=== PATIENT | female | born 1955 | race Two or more races ===

== ENCOUNTER 2017-07-25 23:00 | Inpatient (IN) | payer SELFPAY ==
[~2017-07-25] VITALS: Ht 162.6 cm; Wt 74.8 kg
--- NOTE | 2017-07-25 23:00 | NUR ---
BIBRA 62 C/O LEFT SHOULDER PAIN S/P WITNESSED TRIP AND FALL BY SON X 30 MIN. BS WNL EN ROUTE BY RA. VSS NAD. LEFT SHOULDER PAIN 10/10 WITH MOVEMENT. A/OX4 ABLE TO MAKE NEEDS KNOWN AND FAMILY AT BEDSIDE FOR MORE INFORMATION. WILL CONTINUE TO MONITOR FOR ANY CHANGES DURING THE SHIFT.
--- NOTE | 2017-07-25 23:01 | NUR ---
ER AT BEDSIDE FOR EVAL
--- NOTE | 2017-07-25 23:29 | NUR ---
LAB AT BEDSIDE TO COLLECT LABS
[2017-07-25] MEDS ORDERED: KETOROLAC TROMETHAMINE INJ 30 MG/ML VIAL IV ONE (23:30)
[2017-07-25] MEDS ORDERED: ONDANSETRON HCL/PF 4 MG/2 ML VIAL IVP ONE (23:30)
[2017-07-25] MEDS ORDERED: ONDANSETRON HCL/PF 4 MG/2 ML VIAL ONE (23:35)
[2017-07-25] MEDS ORDERED: KETOROLAC TROMETHAMINE INJ 30 MG/ML VIAL ONE (23:35)
[2017-07-26] VITALS (9 sets, daily range): BP systolic 122–145; BP diastolic 60–86
--- NOTE | 2017-07-26 | NUR ---
PT OFF TO CT
--- NOTE | 2017-07-26 00:07 | NUR ---
PT BACK FORM CT
[2017-07-26 00:08] LABS: BASOPHILS % (AUTO) 0.6 % (0.0-2.0); EOSINOPHILS % (AUTO) 2.8 % (0.0-6.0); HEMATOCRIT 38 % (33-45); HEMOGLOBIN 12.6 g/dL (11.5-14.8); LYMPHOCYTES # (AUTO) 0.6 /CMM (0.8-4.8); LYMPHOCYTES % (AUTO) 8.4 % (20.0-44.0); MEAN CORPUSCULAR HGB CONC 33 g/dl (31.0-36.0); MEAN CORPUSCULAR VOLUME 86 fL (82-100); MONOCYTES # (AUTO) 0.7 /CMM (0.1-1.30); MONOCYTES % (AUTO) 8.8 % (2.0-12.0); NEUTROPHILS # (AUTO) 6.1 /CMM (1.8-8.9); NEUTROPHILS % (AUTO) 79.4 % (43.0-81.0); PLATELET COUNT (AUTO) 234 /CMM (150-450); RDW COEFFICIENT OF VARIATION 13.4 (11.5-15.0); RED BLOOD CELL COUNT(AUTO) 4.48 MIL/uL (4.0-5.2); WHITE BLOOD COUNT (AUTO) 7.7 K/uL (4.3-11.0)
[2017-07-26 00:25] LABS: INR 0.92 (0.87-1.13)
[2017-07-26 00:30] LABS: CARBON DIOXIDE 28 mmol/L (21-32); CHLORIDE 102 mmol/L (98-107); CREATININE 0.7 mg/dL (0.6-1.3); GLUCOSE 135 mg/dL (74-106); POTASSIUM 3.5 mmol/L (3.5-5.1); SODIUM SERUM 138 mmol/L (136-145); UREA NITROGEN, BLOOD 23 mg/dL (7-18)
[2017-07-26 00:31] LABS: TROPONIN I < 0.017 ng/mL (0.00-0.056)
[2017-07-26 00:34] LABS: ALANINE AMINOTRANSFERASE 45 U/L (12-78); ALBUMIN 3.7 g/dL (3.4-5.0); ALKALINE PHOSPHATASE 71 U/L (46-116); ASPARTATE AMINOTRANSFERASE 28 U/L (15-37); BILIRUBIN,TOTAL 0.2 mg/dL (0.2-1.0); TOTAL PROTEIN, SERUM 7.3 g/dL (6.4-8.2)
[2017-07-26] MEDS ORDERED: PROPOFOL 20 ML IV ONE (00:36)
--- NOTE | 2017-07-26 00:46 | NUR ---
ER MD WARREN AT BEDSIDE FOR CONSCIOUS SEDATION. CONSENT SIGNED. 194/111 84 100% 20 ON 10L 02 SIMPLE MASK
--- NOTE | 2017-07-26 00:47 | NUR ---
IVP 100MG DIPROVAN RFA 20G PER MD WARREN ORDER. RT AT BEDSIDE WELL TERMITE INSPECTOR TO ASSIST PROCEDURE.
--- NOTE | 2017-07-26 00:56 | NUR ---
ATTEMPTED TO PLACE SHOULDER BACK INTO PLACE. VITALS 79 174/96 100% 20. WILL CONTINUE TO MONITOR FOR ANY CHANGES. AWAITING MULTIFOCAL BUTTON GRINDER FOR CONFIRMATION
[2017-07-26] MEDS ORDERED: PROPOFOL 200 MG/20 ML VIAL IV ONE (01:00)
--- NOTE | 2017-07-26 01:18 | NUR ---
ER MD WARREN AT BEDSIDE FOR CONSCIOUS SEDATION
--- NOTE | 2017-07-26 01:19 | NUR ---
VITALS PRIOR TO SEDATION 86 20 100% 185/100
--- NOTE | 2017-07-26 01:21 | NUR ---
SHOULDER BACK IN PLACE
--- NOTE | 2017-07-26 01:23 | NUR ---
VITALS AFTER PROCEDURE 88 16 99% 171/89
[2017-07-26] MEDS ORDERED: IV NS 0.9% 1,000 ML IV PRN (01:28)
[2017-07-26] MEDS ORDERED: MAGNESIUM HYDROXIDE 30 ML UDC PO PRN (01:30)
[2017-07-26] MEDS ORDERED: HYDROCODONE/APAP 10/325MG 1 EA TABLET PO PRN (01:30)
[2017-07-26] MEDS ORDERED: HYDROCODONE/APAP 5/325MG 1 EACH TABLET PO PRN (01:30)
[2017-07-26] MEDS ORDERED: ACETAMINOPHEN 325 MG TABLET PO PRN (01:30)
[2017-07-26] MEDS ORDERED: ONDANSETRON HCL/PF 4 MG/2 ML VIAL IVP PRN (01:30)
[2017-07-26] MEDS ORDERED: ZOLPIDEM TARTRATE 5 MG TABLET PO PRN (01:30)
[2017-07-26] MEDS ORDERED: MAG HYDROX/AL HYDROX/SIMETH 30 ML UDC PO PRN (01:30)
--- NOTE | 2017-07-26 02:15 | NUR ---
tele/rn notes NEW ADMITTED PATIENT IS A 62 Y.O FEMALE, ALERT, ORIENTED X3, ABLE TO VERBALIZE NEEDS, RESPIRATIONS EVEN AND UNLABORED, WITH DX OF SYNCOPE, HAD WITNESSED FALL AT HOME, PROCEDURE DONE AND SHOULDER WAS PUT BACK IN PLACE, TELE READING AT SR 90'S, HX OF DM, HTN,HLD, DIET CARB CONTROL. IV ON RFA GAUGE 20, DISCUSSED PLAN OF CARE, REPORTED MEDICATION LIST/ RECONCILED, USES CPAP AT HOME, MD CONTACTED FOR ORDER, PREFER TO USE OWN CPAP MACHINE TO FOLLOW UP IN AM. BELONGINGS CHECK , FAMILY INVOLVE. ROOM ORIENTATION, BED IN LOCK POSITION, CALL LIGHTS WITHIN REACH.
--- NOTE | 2017-07-26 02:20 | NUR ---
patient refused to have pictures taken at this time, will follow up.
[2017-07-26] MEDS ORDERED: PERI8TAB4 PO (02:30)
[2017-07-26] MEDS ORDERED: QUET25TA PO (02:30)
[2017-07-26] MEDS ORDERED: ATOR40TA PO (02:30)
[2017-07-26] MEDS ORDERED: INSU100I4 SQ (02:30)
[2017-07-26] MEDS ORDERED: LEVO137T24 PO (02:30)
--- NOTE | 2017-07-26 03:57 | NUR ---
PT REFUSED TO USE HOSPITAL CPAP MACHINE, STATED SHE WILL HAVE A FAMILY MEMBER BRING HER OWN FROM HOME. HOSPITAL CPAP MACHINE LEFT AT BEDSIDE, PT ENCOURAGED TO CALL IF HAVING DIFFICULTY OF BREATHING OR FEELING S.O.B. DASH GRIFFIN NOTIFIED AND AWARE. Addendum: 07/26/17 at 0359 by SANA SHARMA RT Amended: Links added.
[2017-07-26] MEDS ORDERED: DEXTROSE 50%-WATER 50 ML DISP.SYRIN IV PRN (04:30)
--- NOTE | 2017-07-26 06:28 | NUR ---
309-2 tele/rn notes PATIENT IN BED, AWAKE, ALERT X3, ABLE TO VERBALIZE NEEDS AT ALL TIMES, REPSIRATIONS EVEN AND UNLABORED, ABLE TO AMBULATE WITH SUPERVISION, MD MADE AWARE REGARDING HOME MEDICATIONS AND ORDERED FOR AM TO BE RECONCILED WITH ORDER TO DO ACCUCHECK AT MILD COVERAGE, CALL LIGHTS WITHIN REACH, BED IN LOCK POSITION WILL MONITOR AND ENDORSE TO AM RN FOR DUSTIN.
[2017-07-26] MEDS: BLOOD SUGAR DIAGNOSTIC 1 EACH STRIP IN SCH ×4 (06:39→21:04)
--- NOTE | 2017-07-26 07:35 | NUR ---
REPAIR TABLE OPERATOR NOTES Patient received in bed, awake and verbally responsive. A&O x4 with son at bedside. Left arm sling on w/ complaints of aching pain 3-4/10 on left arm and left groin using pain scale appropriately. Will inform provider regarding left groin for eval. No SOB or any type of distress noted. Safety measures in place. Bed in lowest position, HOB elevated with call light within reach. Will continue to monitor and assess patient
[2017-07-26] MEDS: PANTOPRAZOLE 40 MG TABLET.DR PO SCH (08:00)
[2017-07-26 08:31] LABS: MAGNESIUM 1.7 mg/dL (1.8-2.4); PHOSPHORUS 3.6 mg/dL (2.5-4.9)
[2017-07-26] MEDS ORDERED: CALC-7 PO (08:41)
[2017-07-26] MEDS ORDERED: ASPI-1169 PO (08:41)
[2017-07-26] MEDS ORDERED: MULT-1200 PO (08:41)
[2017-07-26] MEDS ORDERED: SITA1TAB6 PO (08:41)
[2017-07-26] MEDS ORDERED: MAGNESIUM OXIDE 400 MG TABLET PO ONE (10:00)
[2017-07-26] MEDS ORDERED: ONDANSETRON 4 MG TAB.RAPDIS SL PRN (10:00)
[2017-07-26] MEDS: POTASSIUM CHLORIDE 20 MEQ TAB.PRT.SR PO SCH ×3 (10:44→13:04)
[2017-07-26] MEDS: Magnesium 1GM/D5W 100ML PREMIX 100 ML IV SCH ×2 (10:45→11:52)
[2017-07-26 11:08] LABS: CREATINE KINASE MB 6.8 ng/mL (0-3.6)
--- NOTE | 2017-07-26 12:20 | NUR ---
NEUROPATHOLOGIST NOTES - NON-ADMIN MEDS Patient aware of BS 197. Refused Insulin. Explained risks and benefits. Offered x3 but patient continue to refuse.
[2017-07-26] MEDS: IV NS 0.9% 1,000 ML IV PRN ×2 (13:47→18:41)
[2017-07-26] MEDS: INSULIN REGULAR, HUMAN 100 UNIT/ML 3 ML VIAL SQ PRN ×2 (17:22→21:04)
--- NOTE | 2017-07-26 17:54 | NUR ---
PLYWOOD PATCHER CLOSING NOTES Patient remains A&O x4. Ambulatory with minimal assist. CT Pelvis shows unremarkable with no acute abnormality. TELE monitor shows SR, HR 104. Patient stable during shift. Patient non-compliant with hospital medication protocol. Provider aware. Complaints of discomfort but not requesting for any reliever. All anticipated needs provided and met. Safety measures in place. Son at bedside. Bed in lowest position with call light within reach. Will endorse to oncoming shift nurse
[2017-07-26] MEDS: QUETIAPINE FUMARATE 25 MG TABLET PO SCH (18:13)
--- NOTE | 2017-07-26 19:00 | NUR ---
SEISMOMETER OPERATOR OPENING NOTE RECEIVE PATIENT IS RESTING IN BED, A/O X4, NO FACIAL GRIMACING NOTED FOR PAIN. NO SOB OR DISTRESS NOTED, CALL LIGHT WITHIN REACH. SAFETY MEASURES IMPLEMENTED. WILL CONTINUE TO MONITOR THROUGHOUT SHIFT.
--- NOTE | 2017-07-26 21:26 | NUR ---
BOILERMAKER HELPER NOTES - NON-ADMIN MEDS Patient aware of recent BS. pt Refused Insulin. despite explaining risks and benefits. Offered x3 but patient continue to refuse hospitalist applications system analyst made aware
[2017-07-27] VITALS: BP 148/73
--- NOTE | 2017-07-27 00:23 | NUR ---
RT NOTE PATIENT REFUSED TO USE CPAP. CPAP MACHINE LEFT AT PATIENT BEDSIDE, PT ENCOURAGED TO CALL IF HAVING DIFFICULTY OF BREATHING OR FEELING S.O.B. SPO2 97% ON ROOM AIR. DASH HORNE NOTIFIED AND AWARE.
[2017-07-27 00:53] VITALS: BP 148/73
[2017-07-27 04:00] VITALS: BP 136/76
[2017-07-27 04:57] VITALS: BP 136/76
[2017-07-27] MEDS: BLOOD SUGAR DIAGNOSTIC 1 EACH STRIP IN SCH ×3 (05:37→17:30)
[2017-07-27] MEDS: INSULIN REGULAR, HUMAN 100 UNIT/ML 3 ML VIAL SQ PRN (05:38)
--- NOTE | 2017-07-27 06:03 | NUR ---
OUTPATIENT CASE MANAGER CLOSING NOTES PT COMFORTABLY ASLEEP AND EASILY AWAKEN, TOLERATING ROOM AIR 99% IN STABLE CONDITION. RESPIRATION EVEN AND UNLABORED. KEPT CLEAN AND DRY AND COMFORTABLE, ALL NURSING CARE RENDERED. NEEDS ATTENDED AND ANTICIPATED, GOOD SKIN CARE PROVIDED. FREQUENT VISUAL CHECK DONE FOR SAFETY EVERY 2 HOURS. ON LOW BED AT ALL TIMES TO ENSURE SAFETY. SAFE HAZARD FREE ENVIRONMENT PROVIDED. NO COMPLAINS OF PAIN. CALL LIGHT WITHIN EASY TO REACH. WILL ENDORSE NEXT SHIFT CONTINUITY OF CARE.
[2017-07-27 06:37] LABS: BASOPHILS % (AUTO) 0.2 % (0.0-2.0); EOSINOPHILS % (AUTO) 2.1 % (0.0-6.0); HEMATOCRIT 36 % (33-45); HEMOGLOBIN 11.8 g/dL (11.5-14.8); LYMPHOCYTES # (AUTO) 0.4 /CMM (0.8-4.8); LYMPHOCYTES % (AUTO) 5.2 % (20.0-44.0); MEAN CORPUSCULAR HGB CONC 33 g/dl (31.0-36.0); MEAN CORPUSCULAR VOLUME 86 fL (82-100); MONOCYTES # (AUTO) 0.9 /CMM (0.1-1.30); MONOCYTES % (AUTO) 11.4 % (2.0-12.0); NEUTROPHILS # (AUTO) 6.7 /CMM (1.8-8.9); NEUTROPHILS % (AUTO) 81.1 % (43.0-81.0); PLATELET COUNT (AUTO) 213 /CMM (150-450); RDW COEFFICIENT OF VARIATION 13.6 (11.5-15.0); RED BLOOD CELL COUNT(AUTO) 4.13 MIL/uL (4.0-5.2); WHITE BLOOD COUNT (AUTO) 8.2 K/uL (4.3-11.0)
[2017-07-27 07:00] LABS: CALCIUM, SERUM 8.4 mg/dL (8.5-10.1); CREATININE 0.7 mg/dL (0.6-1.3); MAGNESIUM 2.3 mg/dL (1.8-2.4); POTASSIUM 4.1 mmol/L (3.5-5.1)
[2017-07-27 07:02] LABS: THYROID STIMULATING HORMONE 0.658 uIU/mL (0.358-3.74)
--- NOTE | 2017-07-27 07:10 | NUR ---
RN NOTES PT IS SITTING UP IN BED, SLEEPING. PT ON RA, RESPIRATIONS ARE EVEN AND UNLABORED, IV ON RFA INTACT AND SL. NO SIGNS OF DISTRESS NOTED. SAFETY MEASURES ARE IN PLACE, CALL LIGHT IS IN REACH. WILL CONTINUE TO MONITOR.
[2017-07-27] MEDS: LEVOTHYROXINE SODIUM 137 MCG TABLET PO SCH ×2 (07:30→07:50)
[2017-07-27] MEDS: PANTOPRAZOLE 40 MG TABLET.DR PO SCH (07:30)
[2017-07-27 08:00] VITALS: BP 131/77
[2017-07-27] MEDS ORDERED: MULTIPLE VIT (LYCOPENE/FA/MV,CA,IRON,MIN/LUT)1 TAB PO SCH (09:00)
[2017-07-27] MEDS ORDERED: RAMIPRIL 5 MG CAPSULE PO SCH (09:00)
[2017-07-27] MEDS ORDERED: LEVOTHYROXINE SODIUM 112 MCG TABLET PO SCH (09:00)
[2017-07-27] MEDS ORDERED: ATORVASTATIN 40 MG TABLET PO SCH (09:00)
[2017-07-27] MEDS ORDERED: ASPIRIN 81 MG TAB.CHEW PO SCH (09:00)
[2017-07-27] MEDS ORDERED: CALCIUM CARB 250MG /VITAMIN D 1 UDTAB PO SCH (09:00)
--- NOTE | 2017-07-27 12:10 | NUR ---
RN NOTES 1200 ACCUCHECK 190, PT REFUSED INSULIN AT THIS TIME.
[2017-07-27] MEDS ORDERED: IV NS 0.9% 500 ML IV ONE (13:30)
[2017-07-27 16:00] VITALS: BP_SYST 142; BP_SYST 148; BP_SYST 149; BP_SYST 150; BP_DIAS 82; BP_DIAS 83; BP_DIAS 84; BP_DIAS 90
[2017-07-27] MEDS: QUETIAPINE FUMARATE 25 MG TABLET PO SCH (17:30)
[2017-07-27] MEDS ORDERED: LEVO112T5 PO (17:50)
--- NOTE | 2017-07-27 18:53 | NUR ---
RN NOTES PT IS BEING DISCHARGED HOME IN STABLE CONDITION, ACCOMPANIED BY HER SON. IV AND ID BAND WERE REMOVED. PT WAS GIVEN DISCHARGE INSTRUCTIONS AND WAS TOLD TO FOLLOW UP WITH PCP WITHIN 1-2 WEEKS OF DISCHARGE. PT VERBALIZED UNDERSTANDING AND STATED SHE WOULD MAKE HER OWN APPOINTMENT WITH HER PCP. BELONGINGS WERE RETURNED TO PT. SAFETY MEASURES ARE IN PLACE ,CALL LIGHT IS IN REACH. WILL ENDORSE TO SEED TESTER RN TO ENSURE A SAFE DISCHARGE.
--- NOTE | 2017-07-27 19:17 | NUR ---
RN NOTES PT WAS DISCHARGED HOME ACCOMPANIED BY SON IN PRIVATE CARE. PT BROUGHT DOWN TO THE LOBBY IN A WHEELCHAIR BY RUNNER ON. PT LEFT IN STABLE CONDITION WITH ALL BELONGINGS AND DISCHARGE INSTRUCTIONS.
== END 2017-07-27 19:10 | disposition home or self-care (01) | DRG 563 ==
LOC: ER 23:04 → TELE 07-26 01:55 → MED 07-27 08:28
PROVIDERS: ADMIT Nurse Practitioner Acute Care; ATTEND Nurse Practitioner Acute Care
PROC: 0RSKXZZ Reposition Left Shoulder Joint, External Approach (ICD-10-PCS; principal; 2017-07-26)
DX: S43.005A Unspecified dislocation of left shoulder joint, initial encounter (principal); W19.XXXA Unspecified fall, initial encounter; Y93.9 Activity, unspecified; Y92.000 Kitchen of unspecified non-institutional (private) residence as the place of occurrence of the external cause; E11.9 Type 2 diabetes mellitus without complications; I10 Essential (primary) hypertension; E03.9 Hypothyroidism, unspecified; E78.5 Hyperlipidemia, unspecified; E83.42 Hypomagnesemia; E86.0 Dehydration; Z79.4 Long term (current) use of insulin; F41.9 Anxiety disorder, unspecified; F32.9 Major depressive disorder, single episode, unspecified
CPT/HCPCS: 36415; 70450-TC; 71045-TC; 72192-TC; 73030-TC; 80048-TC; 80061-TC; 80076-TC; 82550-TC; 82553-TC; 82962-TC; 83735-TC; 84100-TC; 84439-TC; 84443-TC; 84484-TC; 85025-TC; 85730-TC; 86850-TC; 86921-TC; 87081-TC; 93307-TC; 93880-TC; 95819-TC; A4606; J1815; J1885; J2405; J2704; J3475; J7030; J7040; Z7610